=== PATIENT | male | born 1960 | race Caucasian/White ===

== ENCOUNTER 2021-04-09 14:47 | Emergency (ER) | payer BC ==
[~2021-04-09] VITALS: Ht 188 cm; Wt 99.8 kg
[2021-04-09] MEDS ORDERED: CASIRIVIMAB/IMDEVIMAB 10 ML in SODIUM CHLORIDE 0.9% 100 ML IV ONE (15:15)
[2021-04-09 17:00] VITALS: BP 157/84
== END 2021-04-09 17:04 | disposition home or self-care (01) ==
LOC: ER 15:02
DX: U07.1 COVID-19 (principal); I10 Essential (primary) hypertension
CPT/HCPCS: 99283; J7050